=== PATIENT | female | born 1985 | race Native Hawaiian/Other Pacific Islander ===

== ENCOUNTER 2016-03-13 10:38 | Outpatient (CLI) | payer OTHER ==
[~2016-03-13 10:38] MED LIST: BENZONATATE200 MG PO; CEFTIN250 MG OR; CEPACOL CGH1 LOZ MT; LEVO0.0218 PO; LEVO500T PO; LORA0.5T17 PO; OMEPRAZOLE20 M1 OR; Z-PAK PO
[2016-03-13 11:33] LABS: POTASSIUM 3.8 mmol/L (3.6-5.2); SODIUM 134 mmol/L (136-145)
== END 2016-03-13 19:50 | disposition home or self-care (01) ==
LOC: LABW 10:38
PROVIDERS: Internal Medicine
DX: M54.5 Low back pain (principal)
CPT/HCPCS: 36415; 80048; 81000

== ENCOUNTER 2016-07-03 15:34 | Outpatient (CLI) | payer OTHER | END 2016-07-03 22:42 | disposition home or self-care (01) | LOC: RAD 15:34 | DX: M79.672 Pain in left foot (principal) ==

== ENCOUNTER 2016-08-13 08:50 | Outpatient (CLI) | payer OTHER | END 2016-08-13 19:24 | disposition home or self-care (01) | LOC: LABW 08:50 | DX: E03.8 Other specified hypothyroidism (principal) | CPT/HCPCS: 36415; 84439; 84443 ==

== ENCOUNTER 2017-04-22 13:14 | Outpatient (CLI) | payer BC | END 2017-04-22 19:20 | disposition home or self-care (01) | LOC: RAD 13:14 | DX: M54.12 Radiculopathy, cervical region (principal) ==

== ENCOUNTER 2018-01-08 11:31 | Emergency (ER) | payer BC ==
[~2018-01-08] VITALS: Ht 175.3 cm; Wt 124.7 kg
[2018-01-08 11:59] VITALS: BP 138/84; TEMP 98.1
== END 2018-01-08 12:40 | disposition home or self-care (01) ==
LOC: ED 11:31
DX: R20.2 Paresthesia of skin (principal); T50.B95A Adverse effect of other viral vaccines, initial encounter
CPT/HCPCS: 96374; 96375; 99284; J1200; J2930

== ENCOUNTER 2018-03-19 17:36 | Emergency (ER) | payer OTHER ==
[~2018-03-19] VITALS: Ht 175.3 cm; Wt 124.7 kg
[2018-03-19 18:47] VITALS: BP 136/84; TEMP 98
== END 2018-03-19 18:47 | disposition home or self-care (01) ==
LOC: ED 17:36
DX: T22.012A Burn of unspecified degree of left forearm, initial encounter (principal); T31.0 Burns involving less than 10% of body surface; V89.2XXA Person injured in unspecified motor-vehicle accident, traffic, initial encounter
CPT/HCPCS: 90471; 90715; 96372; 99283; J1885